=== PATIENT | male | born 1955 | race Caucasian/White ===

== ENCOUNTER → 2018-04-10 | Outpatient (CLI) | payer OTHER ==
--- NOTE | 2018-04-10 12:15 | RAD ---
EXAM DESCRIPTION: Shoulder,Left four x-ray Views CLINICAL HISTORY: SHOULDER PAIN COMPARISON: None Available. TECHNIQUE: Four views of the left shoulder. FINDINGS: There is adequate internal and external rotation. Normal alignment on transscapular Y view with slightly posterior position of the humeral head relative to the glenoid on transaxillary view. There is no fracture or dislocation. Degenerative changes at the AC joint are mild. Sclerosis and eburnation of the humeral head and glenoid surface is consistent with chronic complete cartilage loss due to degenerative osteoarthrosis. Prominent medial humeral head osteophyte is present. No focal bone lesion. IMPRESSION: Degenerative osteoarthrosis of the left shoulder. Electronically signed by: Peter Barrera MD 04/10/2018 12:14 PM CDT
== END ==
LOC: RAD 09:32
PROVIDERS: ATTEND Orthopaedic Surgery
DX: M19.012 Primary osteoarthritis, left shoulder (principal); M25.512 Pain in left shoulder

== ENCOUNTER → 2019-05-01 | Outpatient (CLI) | payer OTHER | LOC: GMAL 10:45 | PROVIDERS: ATTEND Family Medicine | DX: Z00.00 Encounter for general adult medical examination without abnormal findings (principal) ==

== ENCOUNTER → 2019-06-04 | Outpatient (CLI) | payer OTHER | LOC: GMAL 14:23 | PROVIDERS: ATTEND Family Medicine | DX: R97.20 Elevated prostate specific antigen [PSA] (principal) ==

== ENCOUNTER → 2019-12-07 | Outpatient (CLI) | payer BC ==
--- NOTE | 2019-12-07 11:01 | RAD ---
EXAM DESCRIPTION: Pelvis CLINICAL HISTORY: PAIN IN LEFT HIP COMPARISON: None. TECHNIQUE: AP pelvis FINDINGS: Phleboliths are observed in the pelvis. The pelvis is intact. Minimal sclerosis of the acetabular roof is observed on the left suggesting early degenerative arthritis. No fracture is detected. IMPRESSION: Very minimal degenerative changes are observed in the left hip. Electronically signed by: Jaspreet Fairchild MD 12/07/2019 10:59 AM CDT
--- NOTE | 2019-12-07 11:02 | RAD ---
EXAM DESCRIPTION: Knee,Left Complete CLINICAL HISTORY: PAIN IN LEFT KNEE COMPARISON: None. TECHNIQUE: 4 views left FINDINGS: Minimal loss of medial joint space is observed. A joint effusion is evident. No fracture is detected. IMPRESSION: Minimal degenerative changes are observed in the medial joint compartment. There is also a small joint effusion. Electronically signed by: Jaspreet Fairchild MD 12/07/2019 11:01 AM CDT
== END ==
LOC: RAD 10:01
PROVIDERS: ATTEND Orthopaedic Surgery
DX: M17.12 Unilateral primary osteoarthritis, left knee (principal); M16.12 Unilateral primary osteoarthritis, left hip

== ENCOUNTER → 2019-12-15 | Outpatient (CLI) | payer BC ==
--- NOTE | 2019-12-15 13:37 | MRI ---
EXAM DESCRIPTION: Knee,Left: MRI. CLINICAL HISTORY: 64 years Male OSTEOARTHRITIS OF KNEE LEFT COMPARISON: None. TECHNIQUE: Multiplanar, high-field MRI, multiple sequences, without contrast: Left knee. FINDINGS: Normal signal in the posterior horn of the medial meniscus extending to the inferior articular surface in the mid sagittal plane of the medial compartment and also extending to the free edge. Degenerative signal in the remaining posterior horn and extending into the body of the meniscus. Almost full-thickness cartilage lesion in the medial condyle. Subchondral edema in the condyle overlying the body of the meniscus. Medial marginal spurs. Minimal edema at the interface of the inferior fat pad in the anterior horn. Anterior horn with normal signal and normal anterior and posterior central root attachment. Intermediate signal in the lateral meniscus. Partial tear of the central root attachment of the anterior horn of the lateral meniscus and disruption of adjacent fatty interface of the infrapatellar fat pad. Minimal chondromalacia in the medial plateau. Intermediate signal in the anterior cruciate ligament which remains taut in extension with normal signal in the posterior cruciate ligament. Medial compartment effusion. Medial collateral ligament and elements of the lateral collateral ligament complex are unremarkable. Posterior medial Bro cyst. Marrow edema in the central patella extending from the subcondylar apex with cartilage essentially absent. Moderate chondromalacia medial and lateral facets. Trochlear cartilage and subchondral bone is unremarkable. Large suprapatellar effusion and superior patellar plica. Edema anterior to the patellar tendon and also in the infrapatellar fat pad. Quadriceps and patellar tendons with normal signal. Edema in the interface of the medial infrapatellar fat pad, vastus medialis, and medial patellar soft tissue restraints. Lateral patellar soft tissue restraints are unremarkable. IMPRESSION: 1. Inferior tear in the posterior horn the medial meniscus in the mid sagittal plane of the medial compartment extending to the free edge. 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 Subchondral edema outer medial condyle overlying the body of the meniscus. Minimal fatty edema abutting the anterior horn of the meniscus. Minimal effusion medial compartment and posterior Bro's cyst. 2. Possible partial tear of the root attachment of the anterior horn of the lateral meniscus. Tear of the infrapatellar fat pad attachments to the meniscus and the anterior lateral tibia. Minimal chondromalacia in the lateral compartment. 3. Degeneration of the anterior cruciate ligament. Posterior cruciate ligament and the collateral ligaments and collateral ligament complex laterally are intact. 4. 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 Moderate sprain of the interface of the vastus medialis tendon and the medial patellar soft tissue restraints. Suprapatellar effusion. Superior Patellar plica. No loose bodies. Electronically signed by: Guillermo Puga MD 12/15/2019 1:35 PM CDT
== END ==
LOC: MRI 10:13
PROVIDERS: ATTEND Orthopaedic Surgery
DX: M17.12 Unilateral primary osteoarthritis, left knee (principal); M23.342 Other meniscus derangements, anterior horn of lateral meniscus, left knee; M23.322 Other meniscus derangements, posterior horn of medial meniscus, left knee; M22.42 Chondromalacia patellae, left knee; M71.22 Synovial cyst of popliteal space [Baker], left knee; M67.52 Plica syndrome, left knee; R60.9 Edema, unspecified; M25.462 Effusion, left knee